=== PATIENT | male | born 1985 | race Caucasian/White ===

== ENCOUNTER 2018-07-19 13:38 | Emergency (ER) | payer SELFPAY ==
[2018-07-19] MEDS ORDERED: Morphine 4 MG/ML VIAL ONE (14:17)
[2018-07-19] MEDS ORDERED: HYDROcodone/Acetaminophen 10/325 mg Tablet ONE (14:26)
--- NOTE | 2018-07-19 15:28 | RAD ---
LEFT KNEE FOUR VIEWS: 07/19/2018 HISTORY: Left knee pain. FINDINGS: There is a sclerotic density seen within the central aspect of the tibial metaphysis, which has julissa cteristics most compatible with a small bone island. No fracture or dislocation is seen. There is n o joint space narrowing. There is suggestion of slight irregularity in the region of the patellar te ndon, which could be related to overlying edema. However, if injury to the patellar tendon is a poss ibility. MRI is recommended for further evaluation. No significant joint effusion is appreciated. IMPRESSION: 1. Irregularity and slight increased density overlying the expected location of the patellar tendon. This may be related to overlying subcutaneous edema. However, findings could potentially be relate d to patellar tendon injury, and MRI left knee is recommended for further evaluation. 2. No significant joint effusion. 3. No fracture visualized. POS: [facility]
== END 2018-07-19 14:57 | disposition home or self-care (01) ==
LOC: ERS 13:38
DX: S76.112A Strain of left quadriceps muscle, fascia and tendon, initial encounter (principal); X58.XXXA Exposure to other specified factors, initial encounter; Y93.67 Activity, basketball
CPT/HCPCS: J2270